=== PATIENT | male | born 1945 ===

== ENCOUNTER 2019-01-20 23:55 | Emergency (ER) | payer MEDICARE ==
[2019-01-20 23:55] VITALS: BMI 29.9
[2019-01-21 02:43] LABS: BASO # 0.1 K/uL (0.0-0.2); BASO % 0.8 % (0.0-2.0); EOS # 0.1 K/uL (0.0-0.7); EOS % 0.9 % (0.0-4.0); HEMOGLOBIN 13.1 g/dL (12.0-18.0); LYMPH # 2.2 K/uL (1.0-4.3); LYMPH % 24.1 % (20.0-40.0); MEAN CELL VOLUME 75.7 fl (80.0-94.0); MEAN CORPUSCULAR HEMOGLOBIN 23.8 pg (27.0-31.0); MEAN CORPUSCULAR HGB CONC 31.5 g/dL (33.0-37.0); MEAN PLATELET VOLUME 8.9 fl (7.2-11.7); MONO % 11.1 % (0.0-10.0); NEUT # 5.6 K/uL (1.8-7.0); NEUT % 63.1 % (50.0-75.0); NRBC % 0.1 % (0.0-0.0); RBC 5.5 Mil/uL (4.40-5.90); RED CELL DISTRIBUTION WIDTH 15.7 % (11.5-14.5); WHITE BLOOD COUNT 8.9 K/uL (4.8-10.8)
[2019-01-21 02:47] LABS: PROTHROMBIN TIME 11.7 Seconds (9.8-13.1)
[2019-01-21 02:50] LABS: ALBUMIN 3.6 g/dL (3.5-5.0); ALT/SGPT 31 U/L (21-72); AST/SGOT 37 U/L (17-59); BLOOD UREA NITROGEN 20 mg/dl (9-20); CALCIUM 9.3 mg/dL (8.4-10.2); GFR NON-AFRICAN AMERICAN > 60
--- NOTE | 2019-01-21 04:41 | ED PDOC ---
HPI:Nausea, Vomiting, Diarrhea Time Seen by Provider: 01/21/19 01:00 Chief Complaint (Nursing): GI Problem Chief Complaint (Provider): GI Problem History Per: Patient History/Exam Limitations: no limitations Onset/Duration Of Symptoms: Days (x 2) Current Symptoms Are (Timing): Still Present Quality Of Discomfort: denies: "Pain" Associated Symptoms: Other (rectal bleeding) Additional Complaint(s): 73 year old male with a history of HTN presents to the ED for evaluation of rectal bleeding onset 2 days ago. Tonight, about 1 1/2 hours after he took his daily aspirin, he felt the urge to defecate and excreted small amount bright red blood with some stool. Shortly after, he had another episode of the same symptoms. Patient reports about a month ago, he began to work out regularly. Patient reports a history of these symptoms 25 years ago, but has not experienced anything similar since. Denies fever, abdominal pain, rectal pain and other complaints. PMD: none Past Medical History Reviewed: Historical Data, Nursing Documentation, Vital Signs Vital Signs: Last Vital Signs Temp 98.3 F 01/21/19 00:10 Pulse 75 01/21/19 00:10 Resp 16 01/21/19 00:10 BP 159/79 H 01/21/19 00:10 Pulse Ox 98 01/21/19 00:10 - Medical History PMH: HTN - Surgical History Surgical History: No Surg Hx - Family History Family History: States: Unknown Family Hx - Social History Current smoker - smoking cessation education provided: No Alcohol: None Drugs: Denies - Home Medications Home Medications: Ambulatory Orders Medication Instructions Recorded Aspirin [Ecotrin] 81 mg PO DAILY 09/02/16 Bisoprolol/HCTZ [Ziac 5-6.25 mg] 1 tab PO DAILY 09/02/16 Cephalexin [cephalexin] 500 mg PO Q8 #60 cap 09/06/16 - Allergies Allergies/Adverse Reactions: Allergies Allergy/AdvReac Type Severity Reaction Status Date / Time No Known Allergies Allergy Verified 01/21/19 00:10 Review of Systems ROS Statement: Except As Marked, All Systems Reviewed And Found Negative Constitutional: Negative for: Fever, Chills Genitourinary Male: Negative for: Dysuria, Frequency, Incontinence Physical Exam - Reviewed Nursing Documentation Reviewed: Yes Vital Signs Reviewed: Yes - Physical Exam Appears: Positive for: Well, Non-toxic, No Acute Distress Head Exam: Positive for: ATRAUMATIC, NORMAL INSPECTION, NORMOCEPHALIC Skin: Positive for: Normal Color, Warm, Dry. Negative for: Rash Eye Exam: Positive for: EOMI, Normal appearance, PERRL ENT: Positive for: Normal ENT Inspection Neck: Positive for: Normal, Painless ROM, Supple Cardiovascular/Chest: Positive for: Regular Rate, Rhythm. Negative for: Murmur Respiratory: Positive for: Normal Breath Sounds. Negative for: Respiratory Distress Gastrointestinal/Abdominal: Positive for: Normal Exam, Bowel Sounds, Soft. Negative for: Tenderness Back: Positive for: Normal Inspection. Negative for: L CVA Tenderness, R CVA Tenderness Extremity: Positive for: Normal ROM. Negative for: Deformity Neurological/Psych: Positive for: Awake, Alert, Normal Tone. Negative for: Motor/Sensory Deficits - Laboratory Results Result Diagrams: 01/21/19 05:40 01/21/19 02:38 Lab Results: PT 11.7 Seconds (9.8-13.1) 01/21/19 02:38 INR 1.0 01/21/19 02:38 Total Bilirubin 0.3 mg/dl (0.2-1.3) 01/21/19 02:38 AST 37 U/L (17-59) 01/21/19 02:38 ALT 31 U/L (21-72) 01/21/19 02:38 Alkaline Phosphatase 81 U/L (38-126) 01/21/19 02:38 Total Protein 7.3 G/DL (6.3-8.2) 01/21/19 02:38 Albumin 3.6 g/dL (3.5-5.0) 01/21/19 02:38 Globulin 3.7 gm/dL (2.2-3.9) 01/21/19 02:38 Albumin/Globulin Ratio 1.0 (1.0-2.1) 01/21/19 02:38 - ECG O2 Sat by Pulse Oximetry: 98 Pulse Ox Interpretation: Normal Medical Decision Making Medical Decision Makin:54 Impression: rectal bleeding currently asymptomatic Initial Plan: --Blood type --CMP --CBC --Protonix 40 mg IVP --Occult blood stool --Guaic test first cbc normal pt has been asymptomatic with no further bleeding while observedin the ER repeat cbc hgb normal again pt feels fine. pt instructed (and as well as bedside) to follow up with his GI or our GI in 1-2 days for eval/colonosopcy pt agreeable to plan. walking around ED in no distress. no fruther complaints. stable for dc home. Scribe Attestation: Documented by Barbara Drake acting as a scribe for Bala Perez MD. Provider Scribe Attestation: All medical record entries made by the Scribe were at my direction and pe rsonally dictated by me. I have reviewed the chart and agree that the record accurately reflects my personal performance of the history, physical exam, medical decision making, and the department course for this patient. I have also personally directed, reviewed, and agree with the discharge instructions and disposition. Disposition - Clinical Impression Clinical Impression: Rectal bleeding - Patient ED Disposition Is Patient to be Admitted: No Counseled Patient/Family Regarding: Studies Performed, Diagnosis, Need For Followup - Disposition Referrals: [facility] [employer] [facility] [employer] [facility] [Outside] Saul Holm MD [Staff Provider] - Disposition: Routine/Home Disposition Time: 07:00 Condition: IMPROVED Additional Instructions: follow up with a GI doctor in 1-2 days return to the ED with any worsening or concerning symptoms Instructions: Bloody Stools, Adult (DC) Forms: [employer] (Niuean)
[2019-01-21 06:32] LABS: BASO % 0.5 % (0.0-2.0); EOS # 0.1 K/uL (0.0-0.7); EOS % 0.9 % (0.0-4.0); HEMOGLOBIN 12.3 g/dL (12.0-18.0); LYMPH # 2.6 K/uL (1.0-4.3); LYMPH % 30.1 % (20.0-40.0); MEAN CELL VOLUME 75.7 fl (80.0-94.0); MEAN CORPUSCULAR HEMOGLOBIN 23.8 pg (27.0-31.0); MEAN CORPUSCULAR HGB CONC 31.5 g/dL (33.0-37.0); MEAN PLATELET VOLUME 8.7 fl (7.2-11.7); MONO # 0.8 K/uL (0.0-0.8); MONO % 8.7 % (0.0-10.0); NEUT # 5.2 K/uL (1.8-7.0); NEUT % 59.8 % (50.0-75.0); RBC 5.15 Mil/uL (4.40-5.90); RED CELL DISTRIBUTION WIDTH 15.6 % (11.5-14.5); WHITE BLOOD COUNT 8.8 K/uL (4.8-10.8)
[2019-01-21 07:45] VITALS: RESP 18
[2019-01-21 07:47] VITALS: BP 136/70; PULSE 82; TEMP 98.4
[2019-01-24 08:32] VITALS: O2SAT 98
== END 2019-01-21 07:10 | disposition home or self-care (01) ==
LOC: H.ER 23:55
DX: K62.5 Hemorrhage of anus and rectum (principal); I10 Essential (primary) hypertension
CPT/HCPCS: 80053; 85025; 85610; 86850; 86900; 96374; 99283; C9113; G0328